=== PATIENT | female | born 1940 | race Two or more races ===

== ENCOUNTER 2020-06-28 09:36 | Emergency (ER) | payer OTHER ==
[~2020-06-28] VITALS: Ht 165.1 cm; Wt 68.0 kg
[2020-06-28] MEDS ORDERED: LIDOCAINE 2% (LOCAL ANESTH.) PF 5ml SDV ONE (11:23)
[2020-06-28] MEDS ORDERED: LIDOCAINE HCL 2 %PF INJ 10ML AMP IJ ONE (12:15)
[2020-06-28 12:24] LABS: Basophils # (auto) 0 10 ^3/uL (0-0.2); Basophils % (auto) 0.1 % (0.0-2.0); Eosinophils # (auto) 0 10 ^3/uL (0-0.8); Lymphocytes # (auto) 0.5 10 ^3/uL (0.4-5.4); Mean Corpuscular Volume 78.8 fL (80.0-100.0); Monocytes # (auto) 0.8 10 ^3/uL (0-1.3); Red Cell Distribution Width 16.4 % (11.8-14.3); White Blood Cell 11.5 10^3/uL (4.4-10.8)
[2020-06-28 12:26] LABS: Hematocrit 32.7 % (36.0-46.0); Hemoglobin 10.6 g/dL (12.2-16.2); Lymphocytes % (auto) 4.5 % (10.0-50.0); Mean Corpuscular Hemoglobin 25.5 pg (28.0-32.0); Mean Corpuscular Hgb Conc. 32.3 g/dL (32.0-36.0); Monocytes % (auto) 7.2 % (0.0-12.0); Neutrophils # (auto) 10.1 10 ^3/uL (1.6-8.6); Neutrophils % (auto) 88.2 % (37.0-80.0); Platelet Count (auto) 173 10^3/uL (140-450); Red Blood Cells 4.14 10^6/uL (4.0-5.20)
[2020-06-28 12:27] VITALS: BP 153/51
[2020-06-28 12:33] LABS: BUN/Creatinine Ratio 26.1; Calcium 8.7 mg/dL (8.5-10.1); Potassium 3.8 mmol/L (3.5-5.1)
[2020-06-28 12:41] LABS: INR 1.14 (0.9-1.15); Partial Thromboplastin Time 24.4 sec (23.0-31.2)
== END 2020-06-28 13:32 | disposition home or self-care (01) ==
LOC: ER 09:36 → EDBD 09:36 → ER 13:32
DX: I97.611 Postprocedural hemorrhage of a circulatory system organ or structure following cardiac bypass (principal); E78.5 Hyperlipidemia, unspecified; I10 Essential (primary) hypertension; E11.22 Type 2 diabetes mellitus with diabetic chronic kidney disease; I12.9 Hypertensive chronic kidney disease with stage 1 through stage 4 chronic kidney disease, or unspecified chronic kidney disease; N18.3 Chronic kidney disease, stage 3 (moderate); Z98.61 Coronary angioplasty status
CPT/HCPCS: 36415; 80048; 85025; 85610; 85730; 93005; 99284; J2001

== ENCOUNTER 2021-12-02 23:44 | Inpatient (IN) | payer OTHER ==
[~2021-12-02] VITALS: Ht 170.2 cm; Wt 55.1 kg
[2021-12-03 03:49] LABS: Basophils # (auto) 0 10 ^3/uL (0-0.2); Basophils % (auto) 0.3 % (0.0-2.0); Eosinophils # (auto) 0 10 ^3/uL (0-0.8); Hemoglobin 10.5 g/dL (12.2-16.2); Monocytes # (auto) 0.5 10 ^3/uL (0-1.3)
[2021-12-03 03:51] LABS: Eosinophils % (auto) 0.2 % (0.0-7.0); Hematocrit 31.6 % (36.0-46.0); Lymphocytes # (auto) 0.8 10 ^3/uL (0.4-5.4); Lymphocytes % (auto) 8.6 % (10.0-50.0); Mean Corpuscular Hemoglobin 26.4 pg (28.0-32.0); Mean Corpuscular Hgb Conc. 33.4 g/dL (32.0-36.0); Mean Corpuscular Volume 78.9 fL (80.0-100.0); Monocytes % (auto) 6.2 % (0.0-12.0); Neutrophils # (auto) 7.5 10 ^3/uL (1.6-8.6); Neutrophils % (auto) 84.7 % (37.0-80.0); Red Cell Distribution Width 16.7 % (11.8-14.3); White Blood Cell 8.8 10^3/uL (4.4-10.8)
[2021-12-03 04:30] LABS: Albumin 3.5 g/dL (3.4-5.0); Calcium 12.5 mg/dL (8.5-10.1); Potassium 4.8 mmol/L (3.5-5.1)
[2021-12-03 04:35] LABS: BUN/Creatinine Ratio 22.2; Bilirubin, Total 0.8 mg/dL (0.2-1.0); Total Protein 7.2 g/dL (6.4-8.2)
[2021-12-03] MEDS ORDERED: ONDANSETRON HCL 4 MG/2 ML VIAL IV PRN (13:45)
[2021-12-03] MEDS ORDERED: NITROGLYCERIN 0.4 MG SL TAB SL PRN (13:45)
[2021-12-03] MEDS ORDERED: MORPHINE SULFATE INJECTION 2 MG/ML SYRG IV PRN (13:45)
[2021-12-03] MEDS ORDERED: MORPHINE SULFATE 4 MG/ML SYR/VIAL IV PRN (13:45)
[2021-12-03] MEDS ORDERED: HYDROcodone-ACET 5/325MG TAB PO PRN (13:45)
[2021-12-03] MEDS ORDERED: ACETAMINOPHEN 325 MG TAB PO PRN (13:45)
[2021-12-03] MEDS ORDERED: GOLYTELY 4L KIT PO ONE (14:00)
[2021-12-03 15:14] LABS: INR 1.13 (0.9-1.15)
[2021-12-04 03:00] VITALS: BP 147/61
[2021-12-04] MEDS ORDERED: METF-370 PO (06:26)
[2021-12-04] MEDS ORDERED: CLOP75TA28 PO (06:26)
[2021-12-04] MEDS ORDERED: ASPI1TAB20 PO (06:26)
[2021-12-04] MEDS ORDERED: FERR1TAB36 PO (06:26)
[2021-12-04 07:34] LABS: Basophils # (auto) 0 10 ^3/uL (0-0.2); Basophils % (auto) 0.3 % (0.0-2.0); Eosinophils # (auto) 0 10 ^3/uL (0-0.8); Eosinophils % (auto) 0.5 % (0.0-7.0); Hematocrit 26.4 % (36.0-46.0); Hemoglobin 8.7 g/dL (12.2-16.2); Lymphocytes # (auto) 0.7 10 ^3/uL (0.4-5.4); Lymphocytes % (auto) 13.2 % (10.0-50.0); Mean Corpuscular Hemoglobin 26.3 pg (28.0-32.0); Mean Corpuscular Hgb Conc. 33.1 g/dL (32.0-36.0); Mean Corpuscular Volume 79.6 fL (80.0-100.0); Monocytes # (auto) 0.5 10 ^3/uL (0-1.3); Monocytes % (auto) 10.4 % (0.0-12.0); Neutrophils # (auto) 3.8 10 ^3/uL (1.6-8.6); Neutrophils % (auto) 75.6 % (37.0-80.0); Red Blood Cells 3.32 10^6/uL (4.0-5.20); Red Cell Distribution Width 16.7 % (11.8-14.3)
[2021-12-04 08:01] LABS: Potassium 4.1 mmol/L (3.5-5.1)
[2021-12-04 08:17] LABS: BUN/Creatinine Ratio 24.4; Bilirubin, Total 0.7 mg/dL (0.2-1.0); Calcium 11.6 mg/dL (8.5-10.1); Total Protein 6.1 g/dL (6.4-8.2)
[2021-12-04] MEDS ORDERED: SODIUM CHLORIDE LOCK 0 ML ONE (08:33)
[2021-12-04] MEDS ORDERED: diphenhdrAMINE HCL 50 MG/1 ML VL ONE (08:34)
[2021-12-04] MEDS ORDERED: fentaNYL CITRATE 100 MCG/2 ML VL ONE (08:34)
[2021-12-04] MEDS ORDERED: MIDAZOLAM HCL 5 MG/ML-1ML VIAL ONE (08:34)
[2021-12-04 08:45] VITALS: BP 145/59
[2021-12-04] MEDS ORDERED: ZOLEDRONIC ACID 4 MG in SODIUM CHL 0.9% 100 ML IV ONE (10:00)
[2021-12-04 10:38] LABS: INR 1.14 (0.9-1.15); Partial Thromboplastin Time 23.9 sec (23.6-33.0)
[2021-12-04 16:30] VITALS: BP 133/49
[2021-12-04 21:40] VITALS: BP 125/40
[2021-12-05 03:00] VITALS: BP 139/64
[2021-12-05 04:49] VITALS: BP 141/52
[2021-12-05] MEDS ORDERED: LIDOCAINE 2%HCL (LOCAL ANESTH.) INJ 20ML MDV ONE (07:38)
[2021-12-05] MEDS ORDERED: SODIUM CHLORIDE LOCK 10 ML ONE (08:32)
[2021-12-05] MEDS ORDERED: diphenhdrAMINE HCL 50 MG/1 ML VL ONE (08:32)
[2021-12-05] MEDS ORDERED: fentaNYL CITRATE 100 MCG/2 ML VL ONE (08:33)
[2021-12-05] MEDS ORDERED: EPINEPHrine HCL 1 MG/10 ML SYRG ONE (08:34)
[2021-12-05] MEDS ORDERED: MIDAZOLAM HCL 2MG/2ML 2ml VIAL (1mg/ml) ONE (08:36)
[2021-12-05] MEDS: fentaNYL CITRATE 100 MCG/2 ML VL ONE ×3 (08:36→10:04)
[2021-12-05 09:00] VITALS: BP 147/54
[2021-12-05] MEDS ORDERED: GELATIN 1 SPONGE SIZE 50 TOP ONE (09:09)
[2021-12-05] MEDS: MIDAZOLAM HCL 5 MG/ML-1ML VIAL ONE ×2 (09:58→10:04)
[2021-12-05 13:00] VITALS: BP 130/41
[2021-12-05 17:00] VITALS: BP 147/47
[2021-12-05 22:00] VITALS: BP 150/72
[2021-12-06 05:30] VITALS: BP 145/75
[2021-12-06 09:38] VITALS: BP 128/49
[2021-12-06 11:53] LABS: Hepatitis B Surface Antibody Negative (Negative)
[2021-12-06 12:21] LABS: Hepatitis A Total Antibody Positive (Negative)
[2021-12-06 14:06] LABS: Hepatitis C Antibody Negative (Negative)
[2021-12-06 14:31] VITALS: BP 137/56
[2021-12-06] MEDS ORDERED: GADOTERATE MEG 10 MMOL/20ml INJ (0.5MMOL/ml) IV ONE (14:46)
[2021-12-06 16:49] VITALS: BP 135/58
[2021-12-06 21:09] VITALS: BP 134/63
[2021-12-07 07:29] LABS: Basophils # (auto) 0 10 ^3/uL (0-0.2); Eosinophils # (auto) 0.1 10 ^3/uL (0-0.8); Hematocrit 23.1 % (36.0-46.0); Lymphocytes # (auto) 0.3 10 ^3/uL (0.4-5.4); Monocytes # (auto) 0.4 10 ^3/uL (0-1.3); Red Blood Cells 2.92 10^6/uL (4.0-5.20)
[2021-12-07 07:33] LABS: Basophils % (auto) 0.3 % (0.0-2.0); Hemoglobin 7.9 g/dL (12.2-16.2); Lymphocytes % (auto) 6.5 % (10.0-50.0); Mean Corpuscular Volume 79.3 fL (80.0-100.0); Monocytes % (auto) 9.8 % (0.0-12.0); Neutrophils # (auto) 3.5 10 ^3/uL (1.6-8.6); Neutrophils % (auto) 81.4 % (37.0-80.0); Nucleated Red Blood Cells % 0.1 %; White Blood Cell 4.3 10^3/uL (4.4-10.8)
[2021-12-07 07:37] LABS: Potassium 3.4 mmol/L (3.5-5.1)
[2021-12-07 07:59] LABS: Albumin 2.4 g/dL (3.4-5.0); BUN/Creatinine Ratio 22.5; Bilirubin, Total 0.4 mg/dL (0.2-1.0); Calcium 8.8 mg/dL (8.5-10.1); Magnesium 2.7 mg/dL (1.6-2.6); Total Protein 5.7 g/dL (6.4-8.2)
[2021-12-07 09:00] VITALS: BP 148/56
[2021-12-07] MEDS ORDERED: DEX4T PO (11:55)
[2021-12-07 13:00] VITALS: BP 132/48
[2021-12-07] MEDS ORDERED: POTASSIUM EFFERVESENT TAB 25 MEQ PO ONE (14:15)
== END 2021-12-07 16:10 | disposition home health service (06) | DRG 988 ==
LOC: EDBD 23:44 → ER 23:44 → TELE 12-03 13:43 → TELE-WESTW 12-04 02:47
PROVIDERS: ADMIT Internal Medicine; ATTEND Internal Medicine
PROC: 0QB03ZX Excision of Lumbar Vertebra, Percutaneous Approach, Diagnostic (ICD-10-PCS; 2021-12-05)
PROC: 0DJD8ZZ Inspection of Lower Intestinal Tract, Via Natural or Artificial Opening Endoscopic (ICD-10-PCS; principal; 2021-12-05 09:52)
DX: K64.8 Other hemorrhoids (principal); D62 Acute posthemorrhagic anemia; R18.8 Other ascites; C79.51 Secondary malignant neoplasm of bone; E44.1 Mild protein-calorie malnutrition; K74.60 Unspecified cirrhosis of liver; R31.9 Hematuria, unspecified; D50.9 Iron deficiency anemia, unspecified; N63.10 Unspecified lump in the right breast, unspecified quadrant; E11.9 Type 2 diabetes mellitus without complications; I10 Essential (primary) hypertension; N28.1 Cyst of kidney, acquired; K57.90 Diverticulosis of intestine, part unspecified, without perforation or abscess without bleeding; K64.4 Residual hemorrhoidal skin tags; Z20.822 Contact with and (suspected) exposure to COVID-19; F41.9 Anxiety disorder, unspecified; Z91.041 Radiographic dye allergy status; Z90.49 Acquired absence of other specified parts of digestive tract
CPT/HCPCS: 10005; 36415; 45378; 71250; 72131; 72157; 74176; 77012; 78306; 80053; 82390; 82962; 83540; 83615; 83735; 85025; 85610; 85730; 86038; 86300; 86704; 86706; 86708; 86803; 87340; 87426; G0378; J2250; J3489

== ENCOUNTER 2021-12-13 07:26 | Emergency (ER) | payer OTHER ==
[~2021-12-13] VITALS: Ht 154.9 cm; Wt 56.7 kg
[~2021-12-13 07:26] MED LIST: ASPI1TAB20 PO; CLOP75TA28 PO; DEX4T PO; FERR1TAB36 PO; METF-370 PO
[2021-12-13 08:39] LABS: Basophils # (auto) 0 10 ^3/uL (0-0.2); Eosinophils # (auto) 0 10 ^3/uL (0-0.8); Hematocrit 16.6 % (36.0-46.0); Monocytes # (auto) 0.8 10 ^3/uL (0-1.3); Red Cell Distribution Width 16.4 % (11.8-14.3)
[2021-12-13 08:41] LABS: Basophils % (auto) 0.2 % (0.0-2.0); Lymphocytes # (auto) 1.6 10 ^3/uL (0.4-5.4); Lymphocytes % (auto) 17.4 % (10.0-50.0); Mean Corpuscular Hemoglobin 25.7 pg (28.0-32.0); Mean Corpuscular Hgb Conc. 32.1 g/dL (32.0-36.0); Mean Corpuscular Volume 80.2 fL (80.0-100.0); Neutrophils # (auto) 6.6 10 ^3/uL (1.6-8.6); Neutrophils % (auto) 73.4 % (37.0-80.0); Nucleated Red Blood Cells % 0.2 %; Red Blood Cells 2.07 10^6/uL (4.0-5.20)
[2021-12-13 08:55] LABS: INR 1.18 (0.9-1.15); Partial Thromboplastin Time 22.7 sec (23.6-33.0)
[2021-12-13 08:57] LABS: Albumin 2.3 g/dL (3.4-5.0); Calcium 7.7 mg/dL (8.5-10.1); Potassium 3.6 mmol/L (3.5-5.1)
[2021-12-13 09:02] LABS: BUN/Creatinine Ratio 17.9; Bilirubin, Total 0.4 mg/dL (0.2-1.0); Total Protein 5.2 g/dL (6.4-8.2)
[2021-12-13 09:31] LABS: Hemoglobin 5.3 g/dL (12.2-16.2)
[2021-12-13] MEDS ORDERED: ONDANSETRON HCL 4 MG/2 ML VIAL IV ONE (10:15)
[2021-12-13] MEDS: ONDANSETRON HCL 4 MG/2 ML VIAL IV ONE ×2 (10:15→12:34)
[2021-12-13 12:27] VITALS: BP 97/46
[2021-12-13 13:27] VITALS: BP 121/49
[2021-12-13 14:30] VITALS: BP 128/56
[2021-12-13 15:30] VITALS: BP 133/52
== END 2021-12-13 17:48 | disposition hospice, inpatient (51) ==
LOC: ER 07:26
DX: K62.89 Other specified diseases of anus and rectum (principal); M54.50 Low back pain, unspecified; E11.9 Type 2 diabetes mellitus without complications; D49.9 Neoplasm of unspecified behavior of unspecified site; D63.0 Anemia in neoplastic disease; K64.9 Unspecified hemorrhoids; R94.31 Abnormal electrocardiogram [ECG] [EKG]; Z51.5 Encounter for palliative care; Z90.49 Acquired absence of other specified parts of digestive tract
CPT/HCPCS: 36415; 36430; 80053; 85025; 85610; 85730; 86850; 86900; 86901; 86920; 87426; 93005; 96374; 99291; J2405; P9016